=== PATIENT | male | born 1945 | race Caucasian/White ===

== ENCOUNTER 2024-06-02 22:56 | Inpatient (IN) | payer BC ==
[~2024-06-02] VITALS: Ht 182.9 cm; Wt 77.1 kg
[2024-06-02] MEDS: IV NORMAL SALINE 500 ML BAG IV ONE (23:00)
[2024-06-02] MEDS: ONDANSETRON 4 MG/2 ML VIAL IV ONE (23:10)
[2024-06-02 23:14] LABS: BASOPHILS % (AUTO) 0.5 % (0.0-2.0); EOSINOPHILS # (AUTO) 0.1 K/uL (0.0-0.7); EOSINOPHILS % (AUTO) 1.6 % (0.0-7.0); HEMATOCRIT 37.9 % (36.7-47.1); HEMOGLOBIN 13.2 g/dL (12.5-16.3); LYMPHOCYTES # (AUTO) 2.1 K/uL (0.8-4.8); LYMPHOCYTES % (AUTO) 26.7 % (20.5-51.5); MEAN CORPUSCULAR HEMOGLOBIN 31.1 uug (23.8-33.4); MEAN CORPUSCULAR HGB CONC 35 g/dL (32.5-36.3); MEAN CORPUSCULAR VOLUME 89.2 fL (73.0-96.2); MONOCYTES # (AUTO) 0.7 K/uL (0.1-1.30); MONOCYTES % (AUTO) 9.1 % (0.0-11.0); NEUTROPHILS # (AUTO) 4.8 K/uL (1.8-8.9); NEUTROPHILS % (AUTO) 62.1 % (38.5-71.5); PLATELET COUNT (AUTO) 178 K/uL (152-348); RED BLOOD CELL COUNT(AUTO) 4.25 MIL/uL (4.06-5.63); RED CELL DISTRIBUTION WIDTH 13.2 % (12.1-16.2); WHITE BLOOD COUNT (AUTO) 7.8 K/uL (3.6-10.2)
[2024-06-02 23:44] LABS: LACTIC ACID 5.4 mmol/L (0.4-2.0)
[2024-06-03] VITALS (10 sets, daily range): BP systolic 95–129; BP diastolic 47–66; TEMP 97.8–98.6; O2SAT 95–98
[2024-06-03 00:02] LABS: ALANINE AMINOTRANSFERASE 17 U/L (16-63); ALBUMIN 3.9 g/dL (3.4-5.0); ALKALINE PHOSPHATASE 95 U/L (50-136); ASPARTATE AMINOTRANSFERASE 5 U/L (15-37); BILIRUBIN,TOTAL 1.1 mg/dL (0.2-1.0); C-REACTIVE PROTEIN 0.07 mg/dL (0.00-0.30); CALCIUM 9.8 mg/dL (8.5-10.1); CARBON DIOXIDE 26 mmol/L (21-32); CHLORIDE 106 mmol/L (98-107); CREATININE 1.3 mg/dL (0.6-1.3); GLUCOSE 76 mg/dL (74-106); MAGNESIUM 1.9 mg/dL (1.8-2.4); POTASSIUM 3.5 mmol/L (3.5-5.1); SODIUM SERUM 145 mmol/L (136-145); TOTAL PROTEIN, SERUM 6.9 g/dL (6.4-8.2); UREA NITROGEN, BLOOD 28 mg/dL (7-18)
[2024-06-03] MEDS: TDAP DIPH,PERTUSS,TET VAC/PF 0.5 ML DISP.SYRIN IM ONE (01:32)
[2024-06-03] MEDS ORDERED: REMEDY ESSENTIAL ZINC PASTE 113 GM TP PRN (01:45)
[2024-06-03] MEDS ORDERED: ONDANSETRON 4 MG/2 ML VIAL IV PRN (01:45)
[2024-06-03] MEDS ORDERED: MAGNESIUM HYDROXIDE 30 ML LIQUID UDC PO PRN (01:45)
[2024-06-03] MEDS ORDERED: ACETAMINOPHEN 325 MG TABLET PO PRN (01:45)
[2024-06-03] MEDS: IV NS 1000 ML 1,000 ML IV PRN (03:50)
[2024-06-03] MEDS: PANTOPRAZOLE SODIUM 40 MG TABLET.DR PO SCH (06:20)
[2024-06-03 06:53] LABS: BASOPHILS % (AUTO) 0.4 % (0.0-2.0); EOSINOPHILS % (AUTO) 0.6 % (0.0-7.0); HEMATOCRIT 35.7 % (36.7-47.1); HEMOGLOBIN 12.6 g/dL (12.5-16.3); LYMPHOCYTES % (AUTO) 16.3 % (20.5-51.5); MEAN CORPUSCULAR HEMOGLOBIN 31.3 uug (23.8-33.4); MEAN CORPUSCULAR HGB CONC 35 g/dL (32.5-36.3); MEAN CORPUSCULAR VOLUME 88.7 fL (73.0-96.2); MONOCYTES # (AUTO) 0.4 K/uL (0.1-1.30); MONOCYTES % (AUTO) 6.3 % (0.0-11.0); NEUTROPHILS # (AUTO) 4.9 K/uL (1.8-8.9); NEUTROPHILS % (AUTO) 76.4 % (38.5-71.5); PLATELET COUNT (AUTO) 135 K/uL (152-348); RED BLOOD CELL COUNT(AUTO) 4.02 MIL/uL (4.06-5.63); RED CELL DISTRIBUTION WIDTH 13.3 % (12.1-16.2); WHITE BLOOD COUNT (AUTO) 6.4 K/uL (3.6-10.2)
[2024-06-03 07:11] LABS: DIFFERENTIAL COMMENT 1
[2024-06-03 07:13] LABS: ALANINE AMINOTRANSFERASE 15 U/L (16-63); ALBUMIN 3.5 g/dL (3.4-5.0); ALKALINE PHOSPHATASE 90 U/L (50-136); ASPARTATE AMINOTRANSFERASE 12 U/L (15-37); BILIRUBIN,DIRECT 0.3 mg/dL (0.0-0.2); BILIRUBIN,TOTAL 1.2 mg/dL (0.2-1.0); CARBON DIOXIDE 25 mmol/L (21-32); CHLORIDE 107 mmol/L (98-107); CREATININE 0.9 mg/dL (0.6-1.3); GLUCOSE 176 mg/dL (74-106); MAGNESIUM 1.9 mg/dL (1.8-2.4); PHOSPHOROUS 3.5 mg/dL (2.5-4.9); SODIUM SERUM 142 mmol/L (136-145); TOTAL PROTEIN, SERUM 6.3 g/dL (6.4-8.2); UREA NITROGEN, BLOOD 23 mg/dL (7-18)
[2024-06-03 07:24] LABS: *BILIRUBIN,URIN NEGATIVE (NEGATIVE); *CLARITY,URINE CLEAR (CLEAR); *COLOR,URINE YELLOW (YELLOW); *KETONES,URINE 2+ (NEGATIVE); *PROTEIN,URINE NEGATIVE (NEGATIVE); *UROBILINOGEN,URINE 0.2 E.U./dl (NORMAL); LEUKOCYTE ESTERASE ,URINE NEGATIVE (NEGATIVE); NITRITE, URINE NEGATIVE (NEGATIVE)
[2024-06-03 07:25] LABS: *BLOOD, URINE TRACE (NEGATIVE); UGLUCOSE 2+ (NEGATIVE)
[2024-06-03 07:49] LABS: RBC,URINE 0-3 /HPF (0-3); SQUAMOUS EPITHELIAL CELL,UR FEW /HPF (NONE SEEN); WBC,URINE 0-3 /HPF (0-3)
[2024-06-03 07:55] LABS: THYROID STIMULATING HORMONE 1.389 mIU/mL (0.358-3.740)
[2024-06-03] MEDS ORDERED: INSU100V42 SQ (09:44)
[2024-06-03] MEDS ORDERED: INSU100I26 SQ (09:44)
[2024-06-03] MEDS ORDERED: SEMA0.25 SQ (09:44)
[2024-06-03] MEDS ORDERED: SWABABLE VALVE TRANSFER SET EA MC ONE (11:19)
[2024-06-03] MEDS ORDERED: IV NORMAL SALINE 250 ML IV ONE (11:19)
[2024-06-03] MEDS ORDERED: IOHEXOL 350 100 ML INFUS..BTL ONE (11:19)
[2024-06-03] MEDS ORDERED: LISI40TA13 PO (13:28)
[2024-06-03] MEDS ORDERED: DEXTROSE 50% 50 ML DISP.SYRIN IV PRN (17:15)
[2024-06-03] MEDS: BLOOD SUGAR DIAGNOSTIC 1 EACH STRIP VI SCH (17:22)
[2024-06-03] MEDS: INSULIN REGULAR, HUMAN 1000 UNIT/10 ML VIAL SQ PRN (17:25)
[2024-06-03] MEDS: INSULIN GLARGINE,HUM 300 UNITS/3 ML CARTRIDGE SQ SCH (20:49)
[2024-06-03] MEDS: INSULIN REGULAR, HUMAN 300 UNITS/3 ML VIAL SQ PRN (20:51)
[2024-06-04] VITALS: BP 100/58; TEMP 98; O2SAT 98
[2024-06-04 05:59] VITALS: TEMP 98
[2024-06-04 06:40] VITALS: BP 129/53; TEMP 97.8; O2SAT 99
[2024-06-04 06:49] LABS: BASOPHILS % (AUTO) 0.5 % (0.0-2.0); EOSINOPHILS # (AUTO) 0.2 K/uL (0.0-0.7); EOSINOPHILS % (AUTO) 4.2 % (0.0-7.0); HEMATOCRIT 36.5 % (36.7-47.1); HEMOGLOBIN 12.6 g/dL (12.5-16.3); LYMPHOCYTES # (AUTO) 1.1 K/uL (0.8-4.8); LYMPHOCYTES % (AUTO) 21.3 % (20.5-51.5); MEAN CORPUSCULAR HEMOGLOBIN 30.8 uug (23.8-33.4); MEAN CORPUSCULAR HGB CONC 35 g/dL (32.5-36.3); MONOCYTES # (AUTO) 0.4 K/uL (0.1-1.30); MONOCYTES % (AUTO) 7.8 % (0.0-11.0); NEUTROPHILS # (AUTO) 3.5 K/uL (1.8-8.9); NEUTROPHILS % (AUTO) 66.2 % (38.5-71.5); PLATELET COUNT (AUTO) 123 K/uL (152-348); RED CELL DISTRIBUTION WIDTH 13.2 % (12.1-16.2); WHITE BLOOD COUNT (AUTO) 5.3 K/uL (3.6-10.2)
[2024-06-04 07:02] LABS: DIFFERENTIAL COMMENT 1
[2024-06-04 07:05] LABS: CALCIUM 8.7 mg/dL (8.5-10.1); CARBON DIOXIDE 23 mmol/L (21-32); CHLORIDE 107 mmol/L (98-107); CREATININE 0.9 mg/dL (0.6-1.3); GLUCOSE 114 mg/dL (74-106); MAGNESIUM 1.7 mg/dL (1.8-2.4); PHOSPHOROUS 3.4 mg/dL (2.5-4.9); POTASSIUM 3.8 mmol/L (3.5-5.1); SODIUM SERUM 141 mmol/L (136-145); UREA NITROGEN, BLOOD 19 mg/dL (7-18)
[2024-06-04 07:37] VITALS: BP 130/58; TEMP 98.6; O2SAT 97
[2024-06-04] MEDS: MAGNESIUM OXIDE 400 MG TABLET PO ONE (10:29)
[2024-06-04 11:43] VITALS: BP 110/53; TEMP 98.5; O2SAT 97
[2024-06-04] MEDS ORDERED: LISINOPRIL 20 MG TABLET PO SCH (14:00)
== END 2024-06-04 13:55 | disposition home or self-care (01) | DRG 312 ==
LOC: ER 22:56 → TELE3 06-03 02:15
PROVIDERS: ADMIT Nurse Practitioner Family; ATTEND Nurse Practitioner Acute Care
DX: I95.2 Hypotension due to drugs (principal); E87.20 Acidosis, unspecified; K51.90 Ulcerative colitis, unspecified, without complications; E11.65 Type 2 diabetes mellitus with hyperglycemia; T38.3X5A Adverse effect of insulin and oral hypoglycemic [antidiabetic] drugs, initial encounter; Y92.010 Kitchen of single-family (private) house as the place of occurrence of the external cause; I65.22 Occlusion and stenosis of left carotid artery; H54.62 Unqualified visual loss, left eye, normal vision right eye; E11.319 Type 2 diabetes mellitus with unspecified diabetic retinopathy without macular edema; S40.812A Abrasion of left upper arm, initial encounter; S40.811A Abrasion of right upper arm, initial encounter; W18.39XA Other fall on same level, initial encounter; Y93.89 Activity, other specified; Z79.4 Long term (current) use of insulin; R74.02 Elevation of levels of lactic acid dehydrogenase [LDH]; R29.6 Repeated falls; S09.90XA Unspecified injury of head, initial encounter; I10 Essential (primary) hypertension
CPT/HCPCS: 36415; 70450; 71045; 83605; 83735; 84100; 84443; 84484; 85025; 86140; 90715; 93307; 93880; A4606; A4663; A6209; G0378; J1815; J2405; J7040; Q9967

== ENCOUNTER 2024-06-20 17:35 | Emergency (ER) | payer BC ==
[~2024-06-20] VITALS: Ht 177.8 cm; Wt 86.2 kg
[~2024-06-20 17:35] MED LIST: INSU100I26 SQ; INSU100V42 SQ; LISI40TA13 PO; SEMA0.25 SQ
[2024-06-20] MEDS ORDERED: TDAP DIPH,PERTUSS,TET VAC/PF 0.5 ML DISP.SYRIN IM ONE (18:24)
[2024-06-20] MEDS ORDERED: NEOMY/BACITRA/POLYMYXIN B OINT UD PACKET TP ONE (18:24)
[2024-06-20] MEDS: NEOMY/BACITRA/POLYMYXIN B OINT UD PACKET TP ONE (18:41)
[2024-06-20] MEDS: TDAP DIPH,PERTUSS,TET VAC/PF 0.5 ML DISP.SYRIN IM ONE (18:41)
[2024-06-20 19:37] VITALS: BP 128/66; TEMP 97.8; O2SAT 99
== END 2024-06-20 19:38 | disposition home or self-care (01) ==
LOC: ER 17:36
DX: S01.81XA Laceration without foreign body of other part of head, initial encounter (principal); I11.9 Hypertensive heart disease without heart failure; R51.9 Headache, unspecified; E11.9 Type 2 diabetes mellitus without complications; Z79.899 Other long term (current) drug therapy; W18.30XA Fall on same level, unspecified, initial encounter; Y93.89 Activity, other specified; Y92.89 Other specified places as the place of occurrence of the external cause; Y99.8 Other external cause status
CPT/HCPCS: 70450; 90715; A4606; A4663

== ENCOUNTER 2024-06-22 12:26 | Emergency (ER) | payer BC | END 2024-06-22 13:24 | disposition left against medical advice (07) | LOC: ER 12:26 | DX: R52 Pain, unspecified (principal); Z53.21 Procedure and treatment not carried out due to patient leaving prior to being seen by health care provider ==

== ENCOUNTER 2024-06-23 12:49 | Emergency (ER) | payer BC ==
[~2024-06-23] VITALS: Ht 177.8 cm; Wt 86.2 kg
[2024-06-23 13:34] VITALS: BP 127/84; TEMP 98.9; O2SAT 98
== END 2024-06-23 13:34 | disposition home or self-care (01) ==
LOC: ER 12:49
DX: S01.81XD Laceration without foreign body of other part of head, subsequent encounter (principal); E11.9 Type 2 diabetes mellitus without complications; I11.9 Hypertensive heart disease without heart failure; Z79.899 Other long term (current) drug therapy; X58.XXXD Exposure to other specified factors, subsequent encounter
CPT/HCPCS: A4606; A4663

== ENCOUNTER 2024-10-28 11:34 | Emergency (ER) | payer BC ==
[~2024-10-28] VITALS: Ht 182.9 cm; Wt 77.1 kg
[2024-10-28 12:41] VITALS: BP 119/78; O2SAT 98
== END 2024-10-28 12:41 | disposition home or self-care (01) ==
LOC: ER 11:34
DX: M60.9 Myositis, unspecified (principal); E11.9 Type 2 diabetes mellitus without complications; I11.9 Hypertensive heart disease without heart failure; Z79.899 Other long term (current) drug therapy
CPT/HCPCS: A4606; A4663